=== PATIENT | female | born 1990 | race Caucasian/White ===

== ENCOUNTER 2022-04-22 13:19 | Emergency (ER) | payer BC, SELFPAY ==
[2022-04-22] VITALS (10 sets, daily range): BP systolic 96–117; BP diastolic 53–65; PULSE 51–80; RESP 16–18; TEMP 36.8; O2SAT 93–100; BMI 28.1
[2022-04-22] MEDS: ONDANSETRON 4 MG/2 ML INJ IV (14:01)
[2022-04-22 14:23] LABS: Add Manual Diff / Slide Review NO; Basophils Absolute Auto 100 /uL (0-100); Basophils Percent Auto 0.9 % (0-2); Eosinophils Absolute Auto 0 /uL (0-450); Eosinophils Percent Auto 0.5 % (2-4); Hematocrit 43.3 % (36-46); Hemoglobin 14.3 g/dL (12.0-16.0); Lymphocytes Absolute Auto 2800 /uL (1100-4500); Lymphocytes Percent Auto 29.1 % (25-40); Mean Corpuscular HGB Conc 32.9 % (30-36); Mean Corpuscular Hemoglobin 30.4 PG (26-34); Mean Corpuscular Volume 92.2 fL (80-100); Monocytes Absolute Auto 500 /uL (0-900); Monocytes Percent Auto 4.7 % (3-14); Neutrophils Absolute Auto 6300 /uL (1500-7000); Neutrophils Percent Auto 64.8 % (50-75); Platelet Count 395 X10^3/uL (150-400); White Blood Cell Count 9.8 X10^3/uL (4.5-11.0)
[2022-04-22 14:26] LABS: Alanine Aminotransferase 26 IU/L (<35); Albumin 4.6 g/dL (3.5-5.0); Albumin Globulin Ratio 1.3 (1.0-2.8); Alkaline Phosphatase 83 U/L (38-126); Aspartate Aminotransferase 23 IU/L (14-36); Bilirubin Total 0.8 mg/dL (0.2-1.3); Blood Urea Nitrogen 9 mg/dL (7-17); Calcium 9.2 mg/dL (8.4-10.2); Carbon Dioxide 26 mmol/L (22-32); Chloride 103 mmol/L (98-107); Estimated Glomerular Filt Rate > 60 mL/min (>60); Globulin 3.6 g/dL (1.7-4.1); Glucose 93 mg/dL (70-100); HEMOLYSIS 20 (0-50); Lipase 55 U/L (23-300); Potassium 3.5 mmol/L (3.4-5.1); Sodium 140 mmol/L (137-145); Total Protein 8.2 g/dL (6.3-8.2)
[2022-04-22 14:43] LABS: Influenza A - CEPHEID Flu A NEGATIVE (NEGATIVE); Influenza B - CEPHEID Flu B NEGATIVE (NEGATIVE); Respiratory Syncytial Virus Negative (Negative)
[2022-04-22 14:47] LABS: COVID-19 CEPHEID 4-PLEX PCR Negative (Negative)
--- NOTE | 2022-04-22 15:23 | DI.RAD.S_ITS ---
PROCEDURE: XR CHEST 2V INDICATIONS: Upper back pain TECHNIQUE: 2 views of the chest were acquired. COMPARISON: None. FINDINGS: Surgical changes and devices: None. Lungs and pleura: Lungs are clear. No pleural effusions or pneumothorax. Mediastinum: Mediastinal contours are normal. Heart size is normal. Bones and chest wall: No suspicious bony abnormalities. Soft tissues appear unremarkable. IMPRESSION: No acute cardiopulmonary process demonstrated radiographically. Dictated by: Saul Srinivasan M.D. on 04/22/2022 at 16:05 Approved by: Saul Srinivasan M.D. on 04/22/2022 at 16:06
--- NOTE | 2022-04-22 15:24 | DI.US.S_ITS ---
PROCEDURE: US ABDOMEN LIMITED INDICATIONS: RIGHT UPPER QUADRANT PAIN. HISTORY OF GALLSTONES. TECHNIQUE: Real-time focused scanning was performed of the abdomen, with image documentation. COMPARISON: None. FINDINGS: Liver is normal in size and appearance. Gallbladder demonstrates no stones. Wall thickness is normal measuring 2.5 mm. No intrahepatic biliary dilation. Common bile duct measures 5.2 cm. Visualized portions of the pancreas are unremarkable. IMPRESSION: No visualized stones. Dictated by: Jessica Solo M.D. on 04/22/2022 at 16:40 Approved by: Jessica Solo M.D. on 04/22/2022 at 16:40
--- NOTE | 2022-04-22 16:11 | ED_ITS ---
HPI - Back Pain/Injury <SABINA Valadez Last Filed: 04/22/22 18:49> General Chief Complaint: Back Pain/Injury Stated Complaint: Upper back pain Time Seen by Provider: 04/22/22 15:15 Source: patient History of Present Illness HPI Narrative: This is a 31-year-old female presents to the emergency department complaining of right upper quadrant pain as well as upper back pain for the last 3 days.. Patient states that her primary complaint is the right upper quadrant pain. Reports some nausea, denies vomiting. Patient states that she has Crohn's disease which is chronic for her and noticing some bright red blood in her in her stool. Patient states that she is a history of gallstones as well. Reports initial fevers which have since improved. Related Data Allergies Allergy/AdvReac Type Severity Reaction Status Date / Time iodine Allergy Verified 04/22/22 13:45 shrimp Allergy Verified 04/22/22 13:45 Review of Systems <SABINA Valadez Last Filed: 04/22/22 18:49> Review of Systems Narrative: GENERAL: Denies chills, fatigue, malaise, fever, sweats. HEENT: Denies sinus pain, ear pain, sore throat, difficulty swallowing, dizziness. RESPIRATORY: Denies dyspnea, cough, wheezing, hemoptysis, sputum. CARDIOVASCULAR: Denies chest pain, palpitations, orthopnea, edema, GASTROINTESTINAL: Right upper quadrant abdominal pain, nausea, diarrhea, blood in stool : Denies dysuria, frequency, incontinence, hematuria, urinary retention. MUSCULOSKELETAL: denies weakness, joint pain, or bony pain SKIN: Denies rash, skin lesions, or other NEUROLOGIC: Denies weakness, headache, numbness, change in speech, confusion, seizures, incoordination. PSYCHIATRIC: No concerning psychosocial issues. 12 point review of systems is negative except for those stated above Patient History <SABINA Valadez Last Filed: 04/22/22 18:49> Social History Smoking Status: Never smoker Smoking Status: Never smoker alcohol intake frequency: a few times a month Alcohol type: wine Substance Use Type: does not use Exam <SABINA Valadez Last Filed: 04/22/22 18:49> Narrative Exam Narrative: GENERAL: Well-developed patient, in mild distress. HEAD: Atraumatic. Normocephalic. EYES: Pupils equal round and reactive. Extraocular motions intact. No scleral icterus. No injection or drainage. ENT: Nose without bleeding, purulent drainage. Throat without erythema, tonsillar hypertrophy or exudate. Airway patent. NECK: Trachea midline. Non tender CARDIOVASCULAR: Regular rate and rhythm without murmurs, gallops, or rubs. RESPIRATORY: Clear to auscultation. Breath sounds equal bilaterally. No wheezes, rales, or rhonchi. GASTROINTESTINAL: Right upper quadrant tenderness to palpation, nondistended EXTREMITIES: No edema or joint tenderness. BACK: Nontender without deformity or crepitance. No flank tenderness. NEURO: AOx3. SKIN: No rash or erythema of visible areas Initial Vital Signs Initial Vital Signs: Vital Signs Temperature 98.2 F 04/22/22 13:37 Pulse Rate 80 04/22/22 13:37 Respiratory Rate 18 04/22/22 13:37 Blood Pressure 113/53 L 04/22/22 13:37 Pulse Oximetry 100 04/22/22 13:37 Oxygen Delivery Method 04/22/22 13:37 <Juhi English DO - Last Filed: 04/23/22 08:22> Initial Vital Signs Initial Vital Signs: Vital Signs Temperature 98.2 F 04/22/22 13:37 Pulse Rate 80 04/22/22 13:37 Respiratory Rate 18 04/22/22 13:37 Blood Pressure 113/53 L 04/22/22 13:37 Pulse Oximetry 100 04/22/22 13:37 Oxygen Delivery Method 04/22/22 13:37 Course <Dino Maurice PA-C - Last Filed: 04/22/22 18:49> Orders Ordered: Discontinued Medications Sodium Chloride (Normal Saline 0.9%) 1,000 mls @ 1,000 mls/hr IV BOLUS ONE Stop: 04/22/22 17:51 Last Admin: 04/22/22 17:10 Dose: 1,000 mls/hr Documented By: PAKO Ketorolac Tromethamine (Ketorolac 30 Mg/Ml Vial) 15 mg IV NOW ONE Stop: 04/22/22 17:14 Last Admin: 04/22/22 17:25 Dose: 15 mg Documented By: PAKO Ondansetron HCl (Ondansetron 4 Mg Odt) 4 mg PO NOW ONE Stop: 04/22/22 13:46 Last Admin: 04/22/22 14:01 Dose: Not Given Documented By: NOHEMY Ondansetron HCl (Ondansetron 4 Mg/2 Ml Inj) 4 mg IV NOW ONE Stop: 04/22/22 13:46 Last Admin: 04/22/22 14:01 Dose: 4 mg Documented By: NOHEMY Vital Signs Vital signs: Vital Signs - 8 hr 04/22/22 13:37 04/22/22 16:11 04/22/22 16:23 Temperature 98.2 F Pulse Rate 80 67 67 Respiratory Rate 18 16 Blood Pressure 113/53 L 96/55 L Pulse Oximetry 100 98 93 Oxygen Delivery Method Room Air Room Air 04/22/22 16:30 04/22/22 16:30 04/22/22 17:00 Temperature Pulse Rate 70 Respiratory Rate Blood Pressure 106/56 L 113/58 L Pulse Oximetry 98 Oxygen Delivery Method 04/22/22 17:00 04/22/22 17:28 04/22/22 17:28 Temperature Pulse Rate 69 51 L Respiratory Rate Blood Pressure 117/63 Pulse Oximetry 98 100 Oxygen Delivery Method Room Air 04/22/22 17:30 04/22/22 17:31 04/22/22 17:31 Temperature Pulse Rate 59 L 58 L Respiratory Rate Blood Pressure 109/65 Pulse Oximetry 100 100 Oxygen Delivery Method Room Air 04/22/22 18:00 04/22/22 18:00 Temperature Pulse Rate 59 L Respiratory Rate Blood Pressure 110/60 Pulse Oximetry 96 Oxygen Delivery Method <Juhi English DO - Last Filed: 04/23/22 08:22> Orders Ordered: Discontinued Medications Sodium Chloride (Normal Saline 0.9%) 1,000 mls @ 1,000 mls/hr IV BOLUS ONE Stop: 04/22/22 17:51 Last Admin: 04/22/22 17:10 Dose: 1,000 mls/hr Documented By: PAKO Ketorolac Tromethamine (Ketorolac 30 Mg/Ml Vial) 15 mg IV NOW ONE Stop: 04/22/22 17:14 Last Admin: 04/22/22 17:25 Dose: 15 mg Documented By: PAKO Ondansetron HCl (Ondansetron 4 Mg Odt) 4 mg PO NOW ONE Stop: 04/22/22 13:46 Last Admin: 04/22/22 14:01 Dose: Not Given Documented By: NOHEMY Ondansetron HCl (Ondansetron 4 Mg/2 Ml Inj) 4 mg IV NOW ONE Stop: 04/22/22 13:46 Last Admin: 04/22/22 14:01 Dose: 4 mg Documented By: NOHEMY Vital Signs Vital signs: Vital Signs - 8 hr 04/22/22 13:37 04/22/22 16:11 04/22/22 16:23 Temperature 98.2 F Pulse Rate 80 67 67 Respiratory Rate 18 16 Blood Pressure 113/53 L 96/55 L Pulse Oximetry 100 98 93 Oxygen Delivery Method Room Air Room Air 04/22/22 16:30 04/22/22 16:30 04/22/22 17:00 Temperature Pulse Rate 70 Respiratory Rate Blood Pressure 106/56 L 113/58 L Pulse Oximetry 98 Oxygen Delivery Method 04/22/22 17:00 04/22/22 17:28 04/22/22 17:28 Temperature Pulse Rate 69 51 L Respiratory Rate Blood Pressure 117/63 Pulse Oximetry 98 100 Oxygen Delivery Method Room Air 04/22/22 17:30 04/22/22 17:31 04/22/22 17:31 Temperature Pulse Rate 59 L 58 L Respiratory Rate Blood Pressure 109/65 Pulse Oximetry 100 100 Oxygen Delivery Method Room Air 04/22/22 18:00 04/22/22 18:00 Temperature Pulse Rate 59 L Respiratory Rate Blood Pressure 110/60 Pulse Oximetry 96 Oxygen Delivery Method MDM - Back Pain/Injury <Dino Maurice PA-C - Last Filed: 04/22/22 18:49> Lab Data Result diagrams: 04/22/22 13:55 04/22/22 13:55 Labs: Lab Results 04/22/22 04/22/22 04/22/22 Range/Units 13:55 13:55 13:55 WBC 9.8 (4.5-11.0) X10^3/uL RBC 4.70 (4.0-5.2) X10^6/uL Hgb 14.3 (12.0-16.0) g/dL Hct 43.3 (36-46) % MCV 92.2 (80-100) fL MCH 30.4 (26-34) PG MCHC 32.9 (30-36) % RDW 13.0 (11.6-14.8) % Plt Count 395 (150-400) X10^3/uL Neut % (Auto) 64.8 (50-75) % Lymph % (Auto) 29.1 (25-40) % [place] % (Auto) 4.7 (3-14) % Eos % (Auto) 0.5 L (2-4) % Baso % (Auto) 0.9 (0-2) % Neut # (Auto) 6300 (6887-2005) /uL Lymph # (Auto) 2800 (3845-6896) /uL [place] # (Auto) 500 (0-900) /uL Eos # (Auto) 0 (0-450) /uL Baso # (Auto) 100 (0-100) /uL Sodium 140 (137-145) mmol/L Potassium 3.5 (3.4-5.1) mmol/L Chloride 103 (98-107) mmol/L Carbon Dioxide 26 (22-32) mmol/L BUN 9 (7-17) mg/dL Creatinine 0.60 (0.52-1.04) mg/dL Estimated GFR > 60 (>60) mL/min BUN/Creatinine Ratio 15.0 (6-22) Glucose 93 (70-100) mg/dL Calcium 9.2 (8.4-10.2) mg/dL Total Bilirubin 0.8 (0.2-1.3) mg/dL AST 23 (14-36) IU/L ALT 26 (<35) IU/L Alkaline Phosphatase 83 (38-126) U/L Total Protein 8.2 (6.3-8.2) g/dL Albumin 4.6 (3.5-5.0) g/dL Globulin 3.6 (1.7-4.1) g/dL Albumin/Globulin Ratio 1.3 (1.0-2.8) Lipase 55 (23-300) U/L Urine Color Urine Appearance Urine pH (4.5-8.0) Ur Specific [place] (1.000-1.035) Urine Protein (Negative) Urine Glucose (UA) (Negative) g/dL Urine Ketones (NEGATIVE) Urine Occult Blood (Negative) Urine Nitrate (Negative) Urine Bilirubin (NEGATIVE) Ur Bilirubin Confirm (Negative) Urine Urobilinogen (0.2) E.U./dL Ur Leukocyte Esterase (NEGATIVE) Urine RBC (0-5/HPF) Urine WBC (0-5/HPF) Ur Squamous Epith Cells (0-5/HPF) Urine Bacteria (None) Urine Mucus (Negative) Ur Culture Indicated? SARS-CoV-2 (PCR) Negative (Negative) Influenza A (RT-PCR) Flu a negative (NEGATIVE) Influenza B (RT-PCR) Flu b negative (NEGATIVE) RSV (PCR) Negative (Negative) 04/22/22 04/22/22 Range/Units 17:25 17:25 WBC (4.5-11.0) X10^3/uL RBC (4.0-5.2) X10^6/uL Hgb (12.0-16.0) g/dL Hct (36-46) % MCV (80-100) fL MCH (26-34) PG MCHC (30-36) % RDW (11.6-14.8) % Plt Count (150-400) X10^3/uL Neut % (Auto) (50-75) % Lymph % (Auto) (25-40) % [place] % (Auto) (3-14) % Eos % (Auto) (2-4) % Baso % (Auto) (0-2) % Neut # (Auto) (3885-2871) /uL Lymph # (Auto) (6133-0492) /uL [place] # (Auto) (0-900) /uL Eos # (Auto) (0-450) /uL Baso # (Auto) (0-100) /uL Sodium (137-145) mmol/L Potassium (3.4-5.1) mmol/L Chloride (98-107) mmol/L Carbon Dioxide (22-32) mmol/L BUN (7-17) mg/dL Creatinine (0.52-1.04) mg/dL Estimated GFR (>60) mL/min BUN/Creatinine Ratio (6-22) Glucose (70-100) mg/dL Calcium (8.4-10.2) mg/dL Total Bilirubin (0.2-1.3) mg/dL AST (14-36) IU/L ALT (<35) IU/L Alkaline Phosphatase (38-126) U/L Total Protein (6.3-8.2) g/dL Albumin (3.5-5.0) g/dL Globulin (1.7-4.1) g/dL Albumin/Globulin Ratio (1.0-2.8) Lipase (23-300) U/L Urine Color Yellow Urine Appearance Clear Urine pH 5.0 (4.5-8.0) Ur Specific [place] >=1.030 H (1.000-1.035) Urine Protein Trace H (Negative) Urine Glucose (UA) Negative (Negative) g/dL Urine Ketones Trace H (NEGATIVE) Urine Occult Blood Trace-lysed (Negative) Urine Nitrate Negative (Negative) Urine Bilirubin Negative (NEGATIVE) Ur Bilirubin Confirm Negative (Negative) Urine Urobilinogen 0.2 (0.2) E.U./dL Ur Leukocyte Esterase Trace H (NEGATIVE) Urine RBC None seen (0-5/HPF) Urine WBC 1-5/hpf (0-5/HPF) Ur Squamous Epith Cells 1-5 /hpf (0-5/HPF) Urine Bacteria Many (>30) H (None) Urine Mucus 2+ H (Negative) Ur Culture Indicated? Specimen cultured SARS-CoV-2 (PCR) (Negative) Influenza A (RT-PCR) (NEGATIVE) Influenza B (RT-PCR) (NEGATIVE) RSV (PCR) (Negative) Point of Care Testing Test Results Negative Urine Dip Bedside Urine Glucose Negative Bedside Urine Bilirubin + 1 Bedside Urine Ketone +/- 5 Urine Specific [place] 1.030 Bedside Urine Occult Blood - Negative Bedside Urine pH 6.0 Bedside Urine Protein +/- 15 Bedside Urine Urobilinogen - Negative Bedside Urine Nitrite - Negative Bedside Urine Leukocytes - Negative Esterase Imaging Data Chest x-ray: Radiologist's Impression: [address] [address] XRay Report Signed Patient: Josselyn Bedoya MR#: [id number] : 1990 Acct:[id number] Age/Sex: 31 / F Date of Service: 04/22/22 Loc: ED Accession Number: [id number] ?? Procedure: XR chest 2V Ordering Provider: Dino Maurice P.A-C PROCEDURE:? XR CHEST 2V ? INDICATIONS:? Upper back pain ? TECHNIQUE:? 2 views of the chest were acquired.? ? COMPARISON:? None. ? FINDINGS:? ? Surgical changes and devices:? None.? ? Lungs and pleura:? Lungs are clear.? No pleural effusions or pneumothorax.? ? Mediastinum:? Mediastinal contours are normal.? Heart size is normal.? ? Bones and chest wall:? No suspicious bony abnormalities.? Soft tissues appear unremarkable.? ? IMPRESSION:? No acute cardiopulmonary process demonstrated radiographically. ? ? Dictated by: Saul Srinivasan M.D. on 04/22/2022 at 16:05 ? ? Approved by: Saul Srinivasan M.D. on 04/22/2022 at 16:06 ? CT scan - abdomen/pelvis: Radiologist's Impression: [address] [address] [address] Scan Report Signed Patient: Josselyn Bedoya MR#: [id number] : 1990 Acct:[id number] Age/Sex: 31 / F Date of Service: 04/22/22 Loc: ED Accession Number: [id number] ?? Procedure: CT abdomen pelvis w con Ordering Provider: Dino Maurice P.A-C PROCEDURE:? CT ABDOMEN PELVIS W CON ? INDICATIONS:? RUQ Pain ? TECHNIQUE:? After the administration of oral and IV contrast, axial sections were acquired from the lung bases to the pubic symphysis.? Coronal and sagittal reformats were performed.? For radiation dose reduction, the following was used:? automated exposure control, adjustment of mA and/or kV according to patient size. ? COMPARISON:? [facility], , ABDOMEN LIMITED, 04/22/2022, 16:13. ? FINDINGS:? Image quality:? Excellent.? ? Lung bases:? Unremarkable. ? Partial visualization of prominent soft tissue densities in breasts bilaterally are most likely asymmetric fibroglandular tissues.? Heart:? No significant findings. ? ? ABDOMEN: Liver:? Unremarkable.? ? Gallbladder:? Unremarkable.? ? Biliary ducts:? Unremarkable.? ? Pancreas:? Unremarkable.? ? Spleen:? Unremarkable.? ? Adrenal Glands:? Unremarkable.? ? Kidneys and Ureters:? Unremarkable.? ? ? Stomach and Bowel:? Stomach, small bowel loops, and colon are unremarkable.? There is a surgical suture in cecum, presumably related to appendectomy. Peritoneum:? No abnormal intraperitoneal fluid.? No free air.? ? Ventral Wall: ? No hernia.? Abdominal Nodes:? No retroperitoneal or mesenteric adenopathy by size criteria.? Vessels:? Aorta and inferior vena cava are normal in size.? ? PELVIS: Pelvic Organs:? There is a 2 cm cyst in the right ovary and a 1.7 cm cyst in the left ovary, most likely dominant ovarian follicles.? Uterus is unremarkable.? There is an IUD. ?No pathological free-fluid. ? Bladder:? Unremarkable.? ? Pelvic Nodes: No enlarged lymph nodes.? Miscellaneous: No inguinal hernias are seen. ? ? ? Bones:? Unremarkable.? IMPRESSION:? ? 1. A cause for right upper quadrant pain is not identified. ? 2. Bilateral ovarian cysts measuring up to 2 cm, most likely dominant ovarian follicles. ? 3. Prominent soft tissue in the breasts bilaterally, most likely asymmetric fibroglandular tissues.? Please correlate with physical exam.? Dictated by: Vilma Davidson M.D. on 04/22/2022 at 18:23 ? ? Approved by: Vilma Davidson M.D. on 04/22/2022 at 18:27 ? US - abdomen: Radiologist's Impression: [place] [address] Ultrasound Report Signed Patient: Josselyn Bedoya MR#: [id number] : 1990 Acct:[id number] Age/Sex: 31 / F Date of Service: 04/22/22 Loc: ED Accession Number: [id number] ?? Procedure: US abdomen limited Ordering Provider: Dino Maurice P.A-C PROCEDURE: US ABDOMEN LIMITED ? INDICATIONS:? RIGHT UPPER QUADRANT PAIN. HISTORY OF GALLSTONES. ? TECHNIQUE:? Real-time focused scanning was performed of the abdomen, with image documentation.? ? COMPARISON:? None. ? FINDINGS:? Liver is normal in size and appearance.? Gallbladder demonstrates no stones.? Wall thickness is normal measuring 2.5 mm.? No intrahepatic biliary dilation.? Common bile duct measures 5.2 cm.? Visualized portions of the pancreas are unremarkable. ? IMPRESSION:? No visualized stones. ? ? Dictated by: Jessica Solo M.D. on 04/22/2022 at 16:40 ? ? Approved by: Jessica Solo M.D. on 04/22/2022 at 16:40 ? [facility] Narrative Medical decision making narrative: This is a 31-year-old female presents emergency department due to primarily right upper quadrant pain. Lab work ordered which showed no significant abnormalities. UA showed trace leuks but patient not describe any UTI symptoms. Right upper quadrant ultrasound was ordered which showed no evidence of gallstones the patient reported. Discuss these findings with the patient and shared decision-making was eventually utilized with patient requesting CT scan which was ordered. CT scans did show bilateral ovarian cysts but no other cause of the right upper quadrant pain she was experiencing. Maybe due to the chronic Crohn's disease the patient reports she has. Recommended she follow-up with her GI specialist and primary care provider for further management of the chronic Crohn's disease. <Juhi Ankur English, DO - Last Filed: 04/23/22 08:22> Lab Data Labs: Lab Results 04/22/22 04/22/22 04/22/22 Range/Units 13:55 13:55 13:55 WBC 9.8 (4.5-11.0) X10^3/uL RBC 4.70 (4.0-5.2) X10^6/uL Hgb 14.3 (12.0-16.0) g/dL Hct 43.3 (36-46) % MCV 92.2 (80-100) fL MCH 30.4 (26-34) PG MCHC 32.9 (30-36) % RDW 13.0 (11.6-14.8) % Plt Count 395 (150-400) X10^3/uL Neut % (Auto) 64.8 (50-75) % Lymph % (Auto) 29.1 (25-40) % [place] % (Auto) 4.7 (3-14) % Eos % (Auto) 0.5 L (2-4) % Baso % (Auto) 0.9 (0-2) % Neut # (Auto) 6300 (7298-6130) /uL Lymph # (Auto) 2800 (6391-8171) /uL [place] # (Auto) 500 (0-900) /uL Eos # (Auto) 0 (0-450) /uL Baso # (Auto) 100 (0-100) /uL Sodium 140 (137-145) mmol/L Potassium 3.5 (3.4-5.1) mmol/L Chloride 103 (98-107) mmol/L Carbon Dioxide 26 (22-32) mmol/L BUN 9 (7-17) mg/dL Creatinine 0.60 (0.52-1.04) mg/dL Estimated GFR > 60 (>60) mL/min BUN/Creatinine Ratio 15.0 (6-22) Glucose 93 (70-100) mg/dL Calcium 9.2 (8.4-10.2) mg/dL Total Bilirubin 0.8 (0.2-1.3) mg/dL AST 23 (14-36) IU/L ALT 26 (<35) IU/L Alkaline Phosphatase 83 (38-126) U/L Total Protein 8.2 (6.3-8.2) g/dL Albumin 4.6 (3.5-5.0) g/dL Globulin 3.6 (1.7-4.1) g/dL Albumin/Globulin Ratio 1.3 (1.0-2.8) Lipase 55 (23-300) U/L Urine Color Urine Appearance Urine pH (4.5-8.0) Ur Specific [place] (1.000-1.035) Urine Protein (Negative) Urine Glucose (UA) (Negative) g/dL Urine Ketones (NEGATIVE) Urine Occult Blood (Negative) Urine Nitrate (Negative) Urine Bilirubin (NEGATIVE) Ur Bilirubin Confirm (Negative) Urine Urobilinogen (0.2) E.U./dL Ur Leukocyte Esterase (NEGATIVE) Urine RBC (0-5/HPF) Urine WBC (0-5/HPF) Ur Squamous Epith Cells (0-5/HPF) Urine Bacteria (None) Urine Mucus (Negative) Ur Culture Indicated? SARS-CoV-2 (PCR) Negative (Negative) Influenza A (RT-PCR) Flu a negative (NEGATIVE) Influenza B (RT-PCR) Flu b negative (NEGATIVE) RSV (PCR) Negative (Negative) 04/22/22 04/22/22 Range/Units 17:25 17:25 WBC (4.5-11.0) X10^3/uL RBC (4.0-5.2) X10^6/uL Hgb (12.0-16.0) g/dL Hct (36-46) % MCV (80-100) fL MCH (26-34) PG MCHC (30-36) % RDW (11.6-14.8) % Plt Count (150-400) X10^3/uL Neut % (Auto) (50-75) % Lymph % (Auto) (25-40) % [place] % (Auto) (3-14) % Eos % (Auto) (2-4) % Baso % (Auto) (0-2) % Neut # (Auto) (8694-1725) /uL Lymph # (Auto) (7826-9299) /uL [place] # (Auto) (0-900) /uL Eos # (Auto) (0-450) /uL Baso # (Auto) (0-100) /uL Sodium (137-145) mmol/L Potassium (3.4-5.1) mmol/L Chloride (98-107) mmol/L Carbon Dioxide (22-32) mmol/L BUN (7-17) mg/dL Creatinine (0.52-1.04) mg/dL Estimated GFR (>60) mL/min BUN/Creatinine Ratio (6-22) Glucose (70-100) mg/dL Calcium (8.4-10.2) mg/dL Total Bilirubin (0.2-1.3) mg/dL AST (14-36) IU/L ALT (<35) IU/L Alkaline Phosphatase (38-126) U/L Total Protein (6.3-8.2) g/dL Albumin (3.5-5.0) g/dL Globulin (1.7-4.1) g/dL Albumin/Globulin Ratio (1.0-2.8) Lipase (23-300) U/L Urine Color Yellow Urine Appearance Clear Urine pH 5.0 (4.5-8.0) Ur Specific [place] >=1.030 H (1.000-1.035) Urine Protein Trace H (Negative) Urine Glucose (UA) Negative (Negative) g/dL Urine Ketones Trace H (NEGATIVE) Urine Occult Blood Trace-lysed (Negative) Urine Nitrate Negative (Negative) Urine Bilirubin Negative (NEGATIVE) Ur Bilirubin Confirm Negative (Negative) Urine Urobilinogen 0.2 (0.2) E.U./dL Ur Leukocyte Esterase Trace H (NEGATIVE) Urine RBC None seen (0-5/HPF) Urine WBC 1-5/hpf (0-5/HPF) Ur Squamous Epith Cells 1-5 /hpf (0-5/HPF) Urine Bacteria Many (>30) H (None) Urine Mucus 2+ H (Negative) Ur Culture Indicated? Specimen cultured SARS-CoV-2 (PCR) (Negative) Influenza A (RT-PCR) (NEGATIVE) Influenza B (RT-PCR) (NEGATIVE) RSV (PCR) (Negative) Point of Care Testing Test Results Negative Urine Dip Bedside Urine Glucose Negative Bedside Urine Bilirubin + 1 Bedside Urine Ketone +/- 5 Urine Specific [place] 1.030 Bedside Urine Occult Blood - Negative Bedside Urine pH 6.0 Bedside Urine Protein +/- 15 Bedside Urine Urobilinogen - Negative Bedside Urine Nitrite - Negative Bedside Urine Leukocytes - Negative Esterase Discharge Plan Departure Patient Disposition: Home Clinical Impression: Abdominal pain Instructions: DI for Abdominal Pain-Adult Activity Restrictions/Additional Instructions: Thank you for coming to the [facility] Emergency Department today. The lab work, ultrasound, and CT scan showed no evidence of a cause of your right upper quadrant pain. Your lab work showed no evidence of infection. I recommend he follow-up with your primary care provider for further follow-up and management of Crohn's disease which may be causing symptoms. I hope you feel better soon. Stand Alone Forms: Work Release Note Visit Report Forms: Patient Portal/API <Juhi English DO - Last Filed: 04/23/22 08:22> Cosign ED Attending Deweyature Attestation: I was immediately available in the department for consultation. Documentation has been reviewed.
--- NOTE | 2022-04-22 16:58 | DI.CT.S_ITS ---
PROCEDURE: CT ABDOMEN PELVIS W CON INDICATIONS: RUQ Pain TECHNIQUE: After the administration of oral and IV contrast, axial sections were acquired from the lung bases to the pubic symphysis. Coronal and sagittal reformats were performed. For radiation dose reduction, the following was used: automated exposure control, adjustment of mA and/or kV according to patient size. COMPARISON: [facility], , ABDOMEN LIMITED, 04/22/2022, 16:13. FINDINGS: Image quality: Excellent. Lung bases: Unremarkable. Partial visualization of prominent soft tissue densities in breasts bilaterally are most likely asymmetric fibroglandular tissues. Heart: No significant findings. ABDOMEN: Liver: Unremarkable. Gallbladder: Unremarkable. Biliary ducts: Unremarkable. Pancreas: Unremarkable. Spleen: Unremarkable. Adrenal Glands: Unremarkable. Kidneys and Ureters: Unremarkable. Stomach and Bowel: Stomach, small bowel loops, and colon are unremarkable. There is a surgical suture in cecum, presumably related to appendectomy. Peritoneum: No abnormal intraperitoneal fluid. No free air. Ventral Wall: No hernia. Abdominal Nodes: No retroperitoneal or mesenteric adenopathy by size criteria. Vessels: Aorta and inferior vena cava are normal in size. PELVIS: Pelvic Organs: There is a 2 cm cyst in the right ovary and a 1.7 cm cyst in the left ovary, most likely dominant ovarian follicles. Uterus is unremarkable. There is an IUD. No pathological free-fluid. Bladder: Unremarkable. Pelvic Nodes: No enlarged lymph nodes. Miscellaneous: No inguinal hernias are seen. Bones: Unremarkable. IMPRESSION: 1. A cause for right upper quadrant pain is not identified. 2. Bilateral ovarian cysts measuring up to 2 cm, most likely dominant ovarian follicles. 3. Prominent soft tissue in the breasts bilaterally, most likely asymmetric fibroglandular tissues. Please correlate with physical exam. Dictated by: Vilma Davidson M.D. on 04/22/2022 at 18:23 Approved by: Vilma Davidson M.D. on 04/22/2022 at 18:27
[2022-04-22] MEDS: SODIUM CHLORIDE 0.9% 1,000 ML 1000 ML IV (17:10)
[2022-04-22] MEDS: KETOROLAC 30 MG/ML VIAL 15 MG IV (17:25)
[2022-04-22 17:41] LABS: Appearance Urine UA CLEAR; Bilirubin Urine UA NEGATIVE (NEGATIVE); Color Urine UA YELLOW; Glucose Urine UA NEGATIVE (Negative); Ketones Urine UA TRACE (NEGATIVE); Leukocyte Esterase Urine UA TRACE (NEGATIVE); Nitrite Urine UA NEGATIVE (Negative); Occult Blood Urine UA TRACE-LYSED (Negative); Protein Urine UA TRACE (Negative); Specific Gravity Urine UA >=1.030 (1.000-1.035); Urobilinogen Urine UA 0.2 E.U./dL (0.2)
[2022-04-22 18:21] LABS: Ictotest Urine Negative (Negative)
[2022-04-22 18:22] LABS: Bacteria Urine Many (>30); Culture Indicated Urine Specimen Cultured; Mucus Urine 2+ (Negative); RBC Urine None Seen (0-5/HPF); Squamous Epithelial Cell Urine 1-5 /HPF (0-5/HPF); WBC Urine 1-5/HPF (0-5/HPF)
== END 2022-04-22 18:57 | disposition home or self-care (01) ==
PROVIDERS: Emergency Medicine; Emergency Provider Physician Assistant Medical
DX: R10.11 Right upper quadrant pain (principal); Z20.822 Contact with and (suspected) exposure to COVID-19
CPT/HCPCS: 0241U; 71046; 74177; 76705; 80053; 81001; 81003; 81025; 83690; 85025; 87086; 96374; 96375; 99284; J1885; J2405